=== PATIENT | male | born 1980 | race American Indian/Alaskan Native ===

== ENCOUNTER 2020-11-03 11:20 | Emergency (ER) | payer OTHER, SELFPAY ==
[2020-11-03] VITALS (34 sets, daily range): BP systolic 108–136; BP diastolic 65–93; PULSE 53–80; RESP 11–23; TEMP 36.3; O2SAT 96–100
--- NOTE | 2020-11-03 11:23 | W.ED.GENAD ---
Discharge Plan Disposition Patient Disposition: HOME Condition: Good Discharge Details Clinical Impression: Fatigue, Dizziness, Dehydration Primary Care Provider: Kyaw Vaughan ED Provider: Madalyn Holman Home Meds and New Rx's Prescriptions: No Action No Known Home Meds RF: 0 Discharge Instructions Instructions: Dehydration (ED), Dizziness (ED), Fatigue (ED) Additional Instructions: Drink plenty of fluids and get plenty of rest. Alternate tylenol and motrin as needed and directed for pain. Your presentation today does not appear consistent with the classic symptoms of COVID-19. If you develop any fever, cough, shortness of breath, nausea, vomiting, diarrhea, loss of sense of smell or taste, call your primary care doctor's office to order an outpatient Covid test which can be done at the hospital tent. Call your primary care doctor's office today or tomorrow to schedule a follow-up appointment for reevaluation. Return immediately to the emergency department if you develop any worsening or new concerning symptoms. Stand Alone Forms: Work Release Discharge Data Discharge Physician: Madalyn Holman Medical Decision Making 1130 -- 39-year-old male with no significant past medical history presents for feeling confused, disoriented and fatigued since last night. Also admits to a syncopal episode today. He denies any known injury. Vitals within normal limits. EKG notes a rate of 58, sinus with early repole. No STEMI. Patient appears somewhat fatigued but nontoxic. No focal deficits. Lungs clear. Abdomen soft nontender. Differential diagnosis includes dehydration, side effect from marijuana or alcohol, electrolyte abnormality, arrhythmia. History and presentation not consistent with CVA or ACS. Will place an IV, bolus IV fluids, screening labs, urinalysis, CT head and continue to monitor. Labs reviewed and unremarkable. Normal white blood cell count. Normal lactate. Urinalysis notes findings consistent with dehydration but not infection. UDS positive for THC. 1335 -- patient reassessed and still complaining of feeling disoriented as well as lightheadedness. Vitals within normal limits. Will give another liter of IV fluids and reassess. 1500 --patient reassessed and he feels much better. He is requesting to go home. Discussed that symptoms may have been due to dehydration in the setting of substance use. Also consider possible evolving viral syndrome. Advised to continue plenty of fluids and rest. Advised to follow up with the primary care doctor for re-evaluation. Usual and customary return precautions given prior to discharge. Medical Records Medical records reviewed: Yes I reviewed the patient's medical records. Imaging Data Radiologic Study: Radiologist's impression: CT HEAD WO CLINICAL HISTORY: confusion, dizziness, syncope. TECHNIQUE: Imaging Protocol: Axial computed tomography images with coronal and sagittal reformatted images were created and reviewed COMPARISON: No exams were available for comparison FINDINGS: Ventricles and Extra axial spaces: Normal in size and morphology for the patient's age. Hemorrhage: None. Cerebral parenchyma: Normal. Midline shift: None. Brainstem/Cerebellum: Normal. Calvarium: Normal. Visualized Paranasal sinuses/Mastoids: Clear. Soft Tissues: Unremarkable. IMPRESSION: No acute intracranial process. XR CHEST 2V PA LATERAL CLINICAL HISTORY: syncopal episode, r/o acute disease TECHNIQUE: 2D digital imaging was performed. COMPARISON: No exams were available for comparison FINDINGS: MEDIASTINUM: Normal. HEART: Normal. PULMONARY VASCULATURE: Normal. LUNGS: Clear. PLEURAL SPACE: No pleural effusion or pneumothorax. BONE:Normal. OTHER FINDINGS:Normal. IMPRESSION: No acute pulmonary findings. Lab Data Lab results reviewed: Yes I reviewed the patient's lab results. Labs: Laboratory Tests Range/Units 11/03/20 11/03/20 11/03/20 11:41 11:41 11:41 WBC (4.4-10.8) 10^3/uL 10.28 RBC (4.36-5.78) 10^6/uL 5.19 Hgb (13.5-17.5) g/dL 14.8 Hct (40.0-50.0) % 42.8 MCV (80-95) fL 82.5 MCH (27.0-33.0) pg 28.5 MCHC (32.0-36.0) % 34.6 RDW (11.8-14.1) % 12.2 Plt Count (130-400) 10^3/uL 142 MPV (8.0-11.0) fL 9.6 Immature Gran % 0.4 Neutrophils % 80.6 Lymphocytes % 10.7 Monocytes % 7.8 Eosinophils % 0.2 Basophils % 0.3 Nucleated RBC % % 0 Absolute Neutrophils (1.2-6.7) 10^3/uL 8.29 H Absolute Lymphocytes (1.2-3.4) 10^3/uL 1.10 L Absolute Monocytes (0.1-0.8) 10^3/uL 0.80 Absolute Eosinophils (0.0-0.7) 10^3/uL 0.02 Absolute Basophils (0.0-0.2) 10^3/uL 0.03 PT (9.3-11.0) sec INR (0.9-1.1) APTT (21.0-27.5) sec VBG Lactate (0.6-1.4) mmol/L 0.9 Sodium (136-145) mmol/L 140 Potassium (3.5-5.1) mmol/L 3.9 Chloride (98-107) mmol/L 108 H Carbon Dioxide (21.0-32.0) mmol/L 23.3 Anion Gap (3-11) mmol/L 8.7 BUN (7-18) mg/dL 19 H Creatinine (0.70-1.30) mg/dL 0.7 Estimated GFR/1.73 m2 (mL/min/1.73m2) >= 60.00 Glucose (74-106) mg/dL 105 Calcium (8.5-10.1) mg/dL 8.9 Magnesium (1.8-2.4) mg/dL 2.1 Total Bilirubin (0.2-1.0) mg/dL 0.6 AST (15-37) U/L 14 L ALT (16-63) U/L 36 Alkaline Phosphatase (46-116) U/L 80 Troponin I (<0.06) ng/mL < 0.05 Total Protein (6.4-8.2) g/dL 7.3 Albumin (3.4-5.0) g/dL 4.0 Urine Color (Yellow) Urine Clarity (Clear) Urine pH (5-8) Ur Specific [place] (1.005-1.025) Urine Protein (Negative) mg/dL Urine Ketones (Negative) mg/dL Urine Blood (Negative) Urine Nitrite (Negative) Urine Bilirubin (Negative) Urine Urobilinogen (Up TO 0.2) EU/dL Ur Leukocyte Esterase (Negative) Urine Glucose (Negative) mg/dL Urine Opiates Screen (Negative) Urine Methadone Screen (Negative) Ur Barbiturates Screen (Negative) Ur Tricyclics Screen (Negative) Ur Amphetamines Screen (Negative) U Benzodiazepines Scrn (Negative) Urine Cocaine Screen (Negative) Ur THC Screen (Negative) Range/Units 11/03/20 11/03/20 11/03/20 11:41 11:45 11:45 WBC (4.4-10.8) 10^3/uL RBC (4.36-5.78) 10^6/uL Hgb (13.5-17.5) g/dL Hct (40.0-50.0) % MCV (80-95) fL MCH (27.0-33.0) pg MCHC (32.0-36.0) % RDW (11.8-14.1) % Plt Count (130-400) 10^3/uL MPV (8.0-11.0) fL Immature Gran % Neutrophils % Lymphocytes % Monocytes % Eosinophils % Basophils % Nucleated RBC % % Absolute Neutrophils (1.2-6.7) 10^3/uL Absolute Lymphocytes (1.2-3.4) 10^3/uL Absolute Monocytes (0.1-0.8) 10^3/uL Absolute Eosinophils (0.0-0.7) 10^3/uL Absolute Basophils (0.0-0.2) 10^3/uL PT (9.3-11.0) sec 10.6 INR (0.9-1.1) 1.1 APTT (21.0-27.5) sec 23.6 VBG Lactate (0.6-1.4) mmol/L Sodium (136-145) mmol/L Potassium (3.5-5.1) mmol/L Chloride (98-107) mmol/L Carbon Dioxide (21.0-32.0) mmol/L Anion Gap (3-11) mmol/L BUN (7-18) mg/dL Creatinine (0.70-1.30) mg/dL Estimated GFR/1.73 m2 (mL/min/1.73m2) Glucose (74-106) mg/dL Calcium (8.5-10.1) mg/dL Magnesium (1.8-2.4) mg/dL Total Bilirubin (0.2-1.0) mg/dL AST (15-37) U/L ALT (16-63) U/L Alkaline Phosphatase (46-116) U/L Troponin I (<0.06) ng/mL Total Protein (6.4-8.2) g/dL Albumin (3.4-5.0) g/dL Urine Color (Yellow) Yellow Urine Clarity (Clear) Clear Urine pH (5-8) 6.5 Ur Specific [place] (1.005-1.025) >= 1.030 H Urine Protein (Negative) mg/dL Negative Urine Ketones (Negative) mg/dL Negative Urine Blood (Negative) Negative Urine Nitrite (Negative) Negative Urine Bilirubin (Negative) Negative Urine Urobilinogen (Up TO 0.2) EU/dL 0.2 Ur Leukocyte Esterase (Negative) Negative Urine Glucose (Negative) mg/dL Negative Urine Opiates Screen (Negative) Negative Urine Methadone Screen (Negative) Negative Ur Barbiturates Screen (Negative) Negative Ur Tricyclics Screen (Negative) Negative Ur Amphetamines Screen (Negative) Negative U Benzodiazepines Scrn (Negative) Negative Urine Cocaine Screen (Negative) Negative Ur THC Screen (Negative) Positive A ECG Data Attestation: I personally reviewed and interpreted this ECG (s) as follows: Interpretation: Rate of 58, sinus, benign early repolarization, V2-4. No STEMI. UT 147. QRS 102. QTc 397. HPI General Mode of arrival: ambulatory. Date/Time Provider Initiated Documentation: 11/03/20 11:21. Limitations to Documentation: no limitations. Information obtained by: patient. HPI Narrative: Patient is a 39-year-old male who presents to the ED with a complaint of confusion, dizziness and fatigue since yesterday. Patient states he smoked marijuana and drank 1 alcoholic beverage last night which was his usual marijuana which she grows and has tried previous cans from this pack for without any side effects. Patient states a few hours after drinking and smoking he felt disoriented and confused. He states he felt like he was dreaming or having an out of body experience. He states he thinks he may have gone to sleep but is unsure and was seeing geometric shapes. He denies any other drug use. He states he woke up this morning and was attempting to get into the shower to go to work and had a syncopal episode. He states prior to the syncopal episode he saw black and felt dizzy. He denies any injury with a syncopal episode or fall. Patient states he then called back up to his bed and slept for 5 hours. He states he then awoke and still felt disoriented and fatigued and called his parents to bring him to the ED. Patient states he has been feeling fine up until this episode starting last night. He denies any recent travel, recent sick contacts, fever, vomiting, diarrhea, chest pain, shortness of breath, cough, abdominal pain or urinary symptoms. Related Data Home Medications Medication Instructions Recorded Confirmed Unknown [No Known Home Meds] 10/20/15 11/03/20 Allergies Allergy/AdvReac Type Severity Reaction Status Date / Time Sulfa (Sulfonamide Allergy Unknown Unverified 11/03/20 11:28 Antibiotics) Review of Systems All systems reviewed & are unremarkable except as noted in HPI and below Constitutional Constitutional: Reports as per HPI, Denies chills, Reports fatigue, Denies fever(s) and Reports poor appetite Eyes Eyes: Denies blurry vision ENT Ears, Nose, Mouth, and Throat: Reports dizziness, Denies sore throat and Denies throat swelling Cardiovascular Cardiovascular: Denies chest pain and Denies dyspnea Respiratory Respiratory: Denies cough and Denies dyspnea Gastrointestinal Gastrointestinal: Denies abdominal pain, Denies diarrhea and Denies vomiting Genitourinary Genitourinary: Denies hematuria and Denies dysuria Musculoskeletal Musculoskeletal: Denies back pain and Denies numbness Integumentary/Breasts Skin/Breast: Denies lesions and Denies rash Neurologic Neurologic: Reports dizziness, Denies localized weakness and Denies numbness Endocrine Endocrine: Reports fatigue Allergic/Immunologic Allergic/Immunologic: Denies throat swelling REPLACED BY [facility] Medical History (Updated 11/03/20 @ 15:28 by Madalyn Holman DO) No significant past medical history Surgical History (Updated 11/03/20 @ 12:34 by Madalyn Holman DO) H/O vasectomy Social History Smoking/Tobacco Use Status: Former Tobacco Use Smoking risk assessment performed?: Yes Alcohol Intake: current Alcohol Intake frequency: a few times a month Alcohol type: hard liquor Drug use: Daily Substance use type: marijuana Do you feel safe at home: Yes Do you feel safe in your relationship?: Yes Exam Const General: cooperative and no acute distress Orientation: alert, awake and oriented x3 HENMT Head: normal to inspection Face and sinus: normal facial exam Eyes General: appearance normal, both eyes and all related structures Pupils: PERRL EOM: EOM intact bilaterally Neck Neck: normal visual inspection and No submandibular swelling Lymphatic: no lymphadenopathy noted Chest Chest: normal inspection of the chest and no tenderness Resp Effort & Inspection: normal respiratory effort and able to speak in complete sentences Auscultation: clear to auscultation bilaterally Cardio Rate: regular rate Rhythm: regular rhythm GI Inspection: normal to inspection Palpation: soft, not firm, not rigid and nontender Auscultation: normal bowel sounds Back/Spine/Pelvis Thoracic/Lumbar Spine: thoracic and lumbar spine normal to inspection Skin General skin exam: no rashes or lesions noted Neuro General: patient alert, patient awake, patient oriented x3, moves all extremities, no meningeal signs and no focal motor deficits Cranial Nerves: CN's II-XI intact bilaterally Cognition: normal cognition Speech: speech normal Motor: muscle tone normal throughout Sensory Exam: no sensory deficits noted Extrem General: normal to inspection, full ROM, capillary refill normal, no calf tenderness bilaterally and no edema Psych Appearance: grossly normal Mental Status: mental status grossly normal Speech and Movement: speech and movement normal Affect: normal affect
--- NOTE | 2020-11-03 11:30 | RT.EKG_ITS ---
APPROVED REPORT Exam: Resting ECG Patient Location: E HR:58 bpm ECG Measurements Heart Rate 58 AXIS MS 147 P 49 QRSd 102 QRS -7 QT 403 T 41 QTc 397 Conclusion Sinus bradycardia...rate< 60 ST elev, probable normal early repol pattern...ST elevation, age<55. No STEMI. I have reviewed and interpreted ECG and agree with software generated interpretation.
[2020-11-03 11:46] LABS: Abs Immature Grans 0.04 10^3/uL (0.0-0.06); Absolute Basophil Count 0.03 10^3/uL (0.0-0.2); Absolute Eosinophil Count 0.02 10^3/uL (0.0-0.7); Absolute Neutrophil Count 8.29 10^3/uL (1.2-6.7); Basophils % 0.3; Eosinophils % 0.2; HCT 42.8 % (40.0-50.0); HGB 14.8 g/dL (13.5-17.5); Immature Grans % 0.4; Lactate 0.9 mmol/L (0.6-1.4); Lymphocytes % 10.7; MCH 28.5 pg (27.0-33.0); MCHC 34.6 % (32.0-36.0); MCV 82.5 fL (80-95); MPV 9.6 fL (8.0-11.0); Monocytes % 7.8; Neutrophils % 80.6; Nucleated RBC 0 %; Platelet Count 142 10^3/uL (130-400); RBC 5.19 10^6/uL (4.36-5.78); RDW 12.2 % (11.8-14.1); RDW-SD 37.4 fL; WBC 10.28 10^3/uL (4.4-10.8)
[2020-11-03 11:51] LABS: Bilirubin Negative (Negative); Blood Negative (Negative); Clarity Clear (Clear); Glucose Negative (Negative); Ketones Negative (Negative); Leukocyte Esterase Negative (Negative); Nitrite Negative (Negative); Specific Gravity >= 1.030 (1.005-1.025); Urobilinogen 0.2 EU/dL (Up TO 0.2); pH 6.5 (5-8)
[2020-11-03 11:58] LABS: INR 1.1 (0.9-1.1); PTT Activated 23.6 sec (21.0-27.5); Prothrombin Time 10.6 sec (9.3-11.0)
--- NOTE | 2020-11-03 12:00 | DI.CT_ITS ---
EXAM: CT HEAD WO CLINICAL HISTORY: confusion, dizziness, syncope. TECHNIQUE: Imaging Protocol: Axial computed tomography images with coronal and sagittal reformatted images were created and reviewed COMPARISON: No exams were available for comparison FINDINGS: Ventricles and Extra axial spaces: Normal in size and morphology for the patient's age. Hemorrhage: None. Cerebral parenchyma: Normal. Midline shift: None. Brainstem/Cerebellum: Normal. Calvarium: Normal. Visualized Paranasal sinuses/Mastoids: Clear. Soft Tissues: Unremarkable. IMPRESSION: No acute intracranial process. RADIATION DOSE DELIVERED: 613.83mGy.cm Total DLP DATA REPOSITORY: All CT scans at this facility are submitted to the National Radiology Data Registry (NRDR) Dose Index Registry (DIR) with the [employer] ([employer]). RADIATION OPTIMIZATION: All CT scans at this facility use at least one of these dose optimization te chniques: automated exposure control; mA and/or kV adjustment per patient size (includes targeted exa ms where dose is matched to clinical indication); or iterative reconstruction.
--- NOTE | 2020-11-03 12:00 | DI.RAD_ITS ---
EXAM: XR CHEST 2V PA LATERAL CLINICAL HISTORY: syncopal episode, r/o acute disease TECHNIQUE: 2D digital imaging was performed. COMPARISON: No exams were available for comparison FINDINGS: MEDIASTINUM: Normal. HEART: Normal. PULMONARY VASCULATURE: Normal. LUNGS: Clear. PLEURAL SPACE: No pleural effusion or pneumothorax. BONE:Normal. OTHER FINDINGS:Normal. IMPRESSION: No acute pulmonary findings. DATA REPOSITORY: RADIATION DOSE DELIVERED:
[2020-11-03 12:05] LABS: ALT 36 U/L (16-63); AST 14 U/L (15-37); Alkaline Phosphatase 80 U/L (46-116); Anion Gap 8.7 mmol/L (3-11); BUN 19 mg/dL (7-18); Bilirubin, Total 0.6 mg/dL (0.2-1.0); CO2 23.3 mmol/L (21.0-32.0); CREATININE 0.7 mg/dL (0.70-1.30); Calcium 8.9 mg/dL (8.5-10.1); Chloride 108 mmol/L (98-107); Glucose 105 mg/dL (74-106); Magnesium 2.1 mg/dL (1.8-2.4); Potassium 3.9 mmol/L (3.5-5.1); Sodium 140 mmol/L (136-145); Total Protein 7.3 g/dL (6.4-8.2)
[2020-11-03 12:05] LABS: *AMPHETAMINES SCREEN URINE Negative (Negative); *BARBITURATES SCREEN URINE Negative (Negative); *BENZODIAZEPINES SCREEN URINE Negative (Negative); Cannabinoids THC POSITIVE (Negative); Cocaine Screen,Urine Negative (Negative); METHADONE URINE SCREEN Negative (Negative); OPIATES URINE SCREEN Negative (Negative)
[2020-11-03 12:07] LABS: Troponin I < 0.05 ng/mL (<0.06)
[2020-11-03 12:07] LABS: Tricyclic Antidepressants Negative (Negative)
[2020-11-03] MEDS: Normal Saline 1,000 ML 1000 ML IV ×2 (12:19→14:15)
[2020-11-03] MEDS: Ketorolac 30 MG/ML VIAL IVP (12:20)
[2020-11-03] MEDS: Normal Saline Flush 10 ML SYR IVP (12:22)
== END 2020-11-03 15:35 | disposition home or self-care (01) ==
PROVIDERS: Emergency Provider Physician Assistant; PCP Family Medicine
DX: R53.83 Other fatigue (principal); R42 Dizziness and giddiness; E86.0 Dehydration
CPT/HCPCS: 36416; 80053; 80307; 82962; 93005; 96361; 96374; 99285; 70450; 71046; 81003; 83605; 83735; 84484; 85025; 85610; 85730; 93010; 99284; J1885

== ENCOUNTER 2020-12-28 16:53 | Emergency (ER) | payer OTHER, SELFPAY ==
[2020-12-28 16:57] VITALS: BP 144/83; PULSE 79; RESP 20; TEMP 36.6; O2SAT 99
--- NOTE | 2020-12-28 17:00 | DI.RAD_ITS ---
EXAM: XR ANKLE RT COMPLETE CLINICAL HISTORY: twisting injury, pain, bruising TECHNIQUE: COMPARISON: No exams were available for comparison FINDINGS: Three views were obtained note is made of soft tissue swelling of the ankle particularly adjacent to the lateral malleolus. The ankle mortise is well maintained. There is no evidence of a fracture or dislocation. IMPRESSION: RADIATION DOSE DELIVERED: Total DLP
--- NOTE | 2020-12-28 17:00 | DI.RAD_ITS ---
EXAM: XR FOOT RT COMPLETE CLINICAL HISTORY: twisting injury, pain, bruising TECHNIQUE: COMPARISON: No exams were available for comparison FINDINGS: Three views were obtained. There is mild soft tissue swelling of the ankle. There is no evidence of acute fracture or dislocation. IMPRESSION: RADIATION DOSE DELIVERED: Total DLP
--- NOTE | 2020-12-28 17:10 | ED.GENADUL_ITS ---
Discharge Plan Disposition Patient Disposition: HOME Condition: Stable Discharge Details Chief Complaint: Orthopedic Clinical Impression: Right ankle sprain, Sprain of foot, right Primary Care Provider: Oly Spangler V ED Provider: Sea Gudino Home Meds and New Rx's Prescriptions: No Action No Known Home Meds RF: 0 Discharge Instructions Instructions: Ankle Sprain (ED) Additional Instructions: your xray did not show any broken bones if pain continues in a week follow up with your primary care Medical Decision Making 40 yo male who denies chronic medical problems comes in with mild right ankle pain. He states last Monday going down stairs missed the last two steps and inverted the ankle. Denies hitting head or loss of consciousness. He has been walking and bearing weight and can full range the ankle but has swelling and bruising so decided to come today for an evaluation. He does have swelling of the ankle and mild lateral malleolus pain and bruising, can full move the ankle and has normal sensation and pulses, no pain over metatarsals. No pain in the knee or elsewhere. Suspect sprain but will xray to evaluate for fracture/disclocation of distal fibula imaging negative no new symptoms, suspect sprain, will d/c and advised to follow up with pcp if pain continues in a week Differential Diagnosis Differential Diagnosis: sprain, strain, fracture Imaging Data Radiologic Study: Attestation: I personally reviewed and interpreted this imaging study as follows: Imaging: X-Ray Radiologist's impression: IMPRESSION: Soft tissue swelling without evidence of acute fracture or dislocation on foot xray Radiologic Study #2: Attestation: I personally reviewed and interpreted this imaging study as follows: Imaging: X-Ray Radiologist's impression: IMPRESSION: Soft tissue swelling without evidence of acute fracture or dislocation on ankle xray [facility] General Mode of arrival: ambulatory . Date/Time Provider Initiated Documentation: 12/28/20 17:07 . Limitations to Documentation: no limitations . Information obtained by: patient . History of Present Illness 40 year old M presents to the emergency department with the chief complaint of right ankle pain, described as mild, with intensity rated at 2. Quality is described as aching, Patient reports no radiation. Patient started experiencing this day(s) (5) and it has been constant. No relieving factors improve symptom(s), No exacerbating factors reported . Patient notes no other symptoms.. Patient did receive the following treatments prior to arrival, none Related Data Home Medications Medication Instructions Recorded Confirmed Unknown [No Known Home Meds] 10/20/15 12/28/20 Allergies Allergy/AdvReac Type Severity Reaction Status Date / Time Sulfa (Sulfonamide Allergy Unknown Unverified 12/28/20 17:00 Antibiotics) General Stated Complaint: Orthopedic BIJU: 4 Review of Systems All systems reviewed & are unremarkable except as noted in HPI and below Constitutional Constitutional: Denies chills, Denies fever(s) and Denies weakness Cardiovascular Cardiovascular: Denies chest pain and Denies dyspnea Respiratory Respiratory: Denies cough and Denies dyspnea Gastrointestinal Gastrointestinal: Denies abdominal pain, Denies nausea and Denies vomiting Neurologic Neurologic: Denies weakness [facility] Medical History (Updated 12/28/20 @ 17:33 by Sea Gudino MD) No significant past medical history Surgical History (Updated 11/03/20 @ 12:34 by Madalyn Holman DO) H/O vasectomy Social History Smoking/Tobacco Use Status: Former Tobacco Use Smoking risk assessment performed?: Yes Alcohol Intake: current Alcohol Intake frequency: a few times a month Alcohol type: hard liquor Drug use: Daily Substance use type: marijuana Do you feel safe at home: Yes Do you feel safe in your relationship?: Yes Exam Const General: no acute distress Orientation: alert HENMT Head: normal to inspection Ears: external ears normal General nose exam: external nose normal Mouth: moist mucous membranes Eyes General: appearance normal, both eyes and all related structures Neck Neck: normal visual inspection Resp Effort & Inspection: normal respiratory effort and able to speak in complete sentences Cardio Rate: regular rate Skin General skin exam: no rashes or lesions noted Neuro General: patient alert and patient oriented x3 Extrem General: full ROM and capillary refill normal Psych Mental Status: mental status grossly normal Course Vital Signs Vital signs: Vital Signs Temperature 36.6 C 12/28/20 16:57 Pulse 79 12/28/20 16:57 Respiratory Rate 20 12/28/20 16:57 Blood Pressure 144/83 H 12/28/20 16:57 Pulse Oximetry 99 12/28/20 16:57 Temperature 36.6 C 12/28/20 16:57 Temperature Source Skin 12/28/20 16:57 Pulse 79 12/28/20 16:57 Respiratory Rate 20 12/28/20 16:57 Respiratory Effort Non-Labored 12/28/20 16:59 Blood Pressure 144/83 H 12/28/20 16:57 Blood Pressure Position Sitting 12/28/20 16:57 Pulse Oximetry 99 12/28/20 16:57 Oxygen Delivery Method Room Air 12/28/20 16:57 Oxygen Flow Rate 0 12/28/20 16:57 Pain Level 2 12/28/20 16:57
--- NOTE | 2020-12-28 17:28 | DI.VRAD_ITS ---
PROCEDURE INFORMATION: Exam: XR Right Foot Exam date and time: 12/28/2020 5:08 PM Age: 40 years old Clinical indication: Foot; Right; Patient HX: Twisting injury, pain, bruising TECHNIQUE: Imaging protocol: XR Right foot. Views: 3 or more views. COMPARISON: No relevant images were readily available for comparison purposes. FINDINGS: Bones/joints: No acute fracture or dislocation Soft tissues: Mild soft tissue swelling about the foot. IMPRESSION: Mild soft tissue swelling without evidence of an acute fracture or dislocation. Dictated and Authenticated by: Chito Acosta MD. Ordering:DEANDRE Corral MD
--- NOTE | 2020-12-28 17:29 | DI.VRAD_ITS ---
PROCEDURE INFORMATION: Exam: XR Right Ankle Exam date and time: 12/28/2020 5:18 PM Age: 40 years old Clinical indication: Ankle; Right; Patient HX: Twisting injury, pain, bruising TECHNIQUE: Imaging protocol: XR Right ankle. Views: 3 or more views. COMPARISON: No relevant images were readily available for comparison purposes. FINDINGS: Bones/joints: No acute fracture or dislocation. Soft tissues: Soft tissue swelling about the ankle. IMPRESSION: Soft tissue swelling without evidence of acute fracture or dislocation. Dictated and Authenticated by: Chito Acosta MD. Ordering:DEANDRE Corral MD
== END 2020-12-28 17:45 | disposition home or self-care (01) ==
PROVIDERS: Emergency Provider Emergency Medicine; PCP Family Medicine
DX: S93.491A Sprain of other ligament of right ankle, initial encounter (principal); W18.49XA Other slipping, tripping and stumbling without falling, initial encounter
CPT/HCPCS: 99284; 73610; 73630; 99283